=== PATIENT | female | born 1995 | race Caucasian/White ===

== ENCOUNTER 2019-09-10 00:19 | Emergency (ER) | payer OTHER ==
[2019-09-10] MEDS ORDERED: diPHENhydraMINE PO* 50 MG PO ONE (00:52)
--- NOTE | 2019-09-10 00:52 | ED ---
Allergic Reaction/Systemic - HPI Summary HPI Summary: Patient is a 24 y/o F presenting to [facility] with complaints of SOB, cough, wheezing and pruritus. She states that she had an encounter with her partner's cat tonight. She subsequently experienced onset of Sx. Patient went outside for cold air but reports no relief in Sx. She denies fever and production of phlegm with cough. Patient is on fluoxetine for anxiety. She denies Hx of asthma. PSHx of hip surgery x3, most recent was six weeks ago. She states that she had a glass of wine tonight. Patient denies tobacco and substance usage. Allergy to shrimp and percocet is noted. Home medications and allergies are reviewed. - History of Current Complaint Chief Complaint: EDAllergicReaction Time Seen by Provider: 09/10/19 00:41 Hx Obtained From: Patient Onset/Duration: Still Present Timing: Constant Severity Currently: None Pain Intensity: 0 Pain Scale Used: 0-10 Numeric Character: Pruritus Associated Signs And Symptoms: Positive: Other: - SOB, cough, wheezing - Allergies/Home Medications Allergies/Adverse Reactions: Allergies Allergy/AdvReac Type Severity Reaction Status Date / Time cats Allergy Hives Uncoded 09/10/19 00:26 percocet Allergy Hives Uncoded 09/10/19 00:21 shrimp Allergy Hives Uncoded 09/10/19 00:21 Home Medications: Home Medications Fluoxetine 20 mg PO DAILY 09/10/19 [History Confirmed 09/10/19] LORazepam 0.5 mg PO SEE INSTRUCTIONS 09/10/19 [History Confirmed 09/10/19] Mirena IUD 1 applic VAGINAL DAILY 09/10/19 [History Confirmed 09/10/19] PMH/Surg Hx/FS Hx/Imm Hx Respiratory History: Denies: Hx Asthma Sensory History: Denies: Hx Legally Blind, Hx Deafness Opthamlomology History: Denies: Hx Legally Blind EENT History: Denies: Hx Deafness Psychiatric History: Reports: Hx Anxiety - Surgical History Surgery Procedure, Year, and Place: hip surgery x3 Infectious Disease History: No Infectious Disease History: Denies: Traveled Outside the [place] in Last 30 Days - Family History Known Family History: Negative: Respiratory Disease - Social History Alcohol Use: Occasionally Substance Use Type: Reports: None Smoking Status (MU): Never Smoked Tobacco Review of Systems - ROS Summary Review of Systems Summary: Home Medications Medication Instructions Recorded Confirmed Type Fluoxetine 20 mg PO DAILY 09/10/19 09/10/19 History LORazepam 0.5 mg PO SEE INSTRUCTIONS 09/10/19 09/10/19 History Mirena IUD 1 applic VAGINAL DAILY 09/10/19 09/10/19 History Negative: Fever Respiratory: Other - wheezes Positive: Shortness Of Breath, Cough Skin: Other - pruritus All Other Systems Reviewed And Are Negative: Yes Physical Exam - Summary Physical Exam Summary: General: Well-developed, Well-nourished female. No acute distress. HEENT: Normocephalic, Atraumatic. Eyes: Conjuctiva normal, PERRL. Ears: TMs within normal limits. Nares: (-) discharge, (-) erythema. Oropharynx: Clear, mucous membranes moist, (-) exudates. Neck: Soft, FROM, (-) lymphadenopathy, (-) thyromegaly, (-) JVD. Cardiovascular: Normal sinus rhythm, (-) murmur. Lungs: Slightly prolonged expiration with good air exchange (-) wheezes, (-) rales, (-) rhonchi. Abdomen: Soft, non-tender, non-distended, (-) organomegaly, normal bowel sounds. Back: (-) CVA tenderness Extremities: No edema. Skin: Warm, dry, (-) rash. Neuro: Alert and oriented x3, no focal deficits. Psychiatric: Anxious appearing, otherwise normal Triage Information Reviewed: Yes Vital Signs On Initial Exam: Initial Vitals Temp Pulse Resp BP Pulse Ox 98.0 F 102 22 111/82 96 09/10/19 00:21 09/10/19 00:21 09/10/19 00:21 09/10/19 00:21 09/10/19 00:21 Vital Signs Reviewed: Yes Procedures - Sedation Patient Received Moderate/Deep Sedation with Procedure: No Diagnostics - Vital Signs Vital Signs Temp Pulse Resp BP Pulse Ox 09/10/19 00:21 98.0 F 102 22 111/82 96 - Laboratory Result Diagrams: 09/10/19 01:08 09/10/19 01:08 Lab Statement: Any lab studies that have been ordered have been reviewed, and results considered in the medical decision making process. - Radiology CXR Radiology Interpretation Completed By: ED Physician Summary of Radiographic Findings: No infiltrate, no pleural effusion, pending official report. Re-Evaluation - Re-Evaluation First Eval Re-Evaluation Time: 02:40 Change: Improved Comment: Patient's Sx are improved with meds. Patient was discharged to home. She was instructed to avoid potential allergens. Allergic Reaction Course/Dx - Course Course Of Treatment: 24 y/o F with acute onset of SOB and wheezing after exposure to cat. No Hx of allergies or asthma. Sx are improved with change in enviornment. She was also given duoneb and benadryl with improved Sx. Patient was discharged to home and advised to take Benadryl 50 mg every six hours as needed and to follow up with PCP. She was instructed to avoid potential allergens. - Diagnoses Provider Diagnoses: Allergic reaction Discharge ED - Sign-Out/Discharge Documenting (check all that apply): Patient Departure - discharge - Discharge Plan Condition: Stable Disposition: HOME Patient Education Materials: General Allergic Reaction (ED) Referrals: [facility] [Outside] - 3 Days Additional Instructions: PLEASE RETURN TO ED FOR ANY NEW OR WORSENING SYMPTOMS. PLEASE FOLLOW UP WITH YOUR PRIMARY CARE PHYSICIAN WITHIN THREE DAYS. TAKE BENADRYL 50 MG EVERY SIX HOURS NEEDED. - Billing Disposition and Condition Condition: STABLE Disposition: Home - Attestation Statements Document Initiated by Carynibe: Yes Documenting Scribe: KENDY RENDON Provider For Whom Foster is Documenting (Include Credential): PANCHO FROST MD Scribe Attestation: KENDY Bird, scribed for PANCHO FROST MD on 09/10/19 at 0400. Scribe Documentation Reviewed: Yes Provider Attestation: The documentation as recorded by the KENDY lopez accurately reflects the service I personally performed and the decisions made by me, PANCHO FROST MD Status of [employer] Document: Viewed
[2019-09-10] MEDS ORDERED: Albuterol/Ipratropium NEB.SOL* Albuterol 2.5 MG/Ipratropium 0.5 MG 3 ML INH ONE (00:54)
[2019-09-10 01:16] LABS: ABS Basophils 0.1 10^3/ul (0-0.2); ABS Eosinophils 0.6 10^3/ul (0-0.6); ABS Lymphocytes 1.8 10^3/ul (1.0-4.8); ABS Monocytes 0.6 10^3/ul (0-0.8); ABS Neutrophils 3.8 10^3/ul (1.5-7.7); Eosinophil % 8.4 %; Hematocrit 38 % (35-47); Lymphocyte % 26.3 %; Mean Corpuscular HGB Conc 34 g/dL (31-36); Mean Corpuscular Hemoglobin 32 pg (27-31); Mean Corpuscular Volume 93 fL (80-97); Mean Platelet Volume 7.6 fL (7.4-10.4); Platelet Count 283 10^3/uL (150-450); Red Blood Count 4.09 10^6 /uL (3.70-4.87); Red Cell Distribution Width 13 % (10-15); White Blood Count 6.9 10^3/uL (3.5-10.8)
[2019-09-10 01:31] LABS: INR 1.09 (0.82-1.09)
[2019-09-10 01:32] LABS: ALT 13 U/L (7-52); AST 13 U/L (13-39); Albumin 4.3 g/dL (3.2-5.2); Albumin/Globulin Ratio 1.8 (1-3); Alkaline Phosphatase 46 U/L (34-104); Anion Gap 8 mmol/L (2-11); BUN/Creatinine Ratio 19.1 (8-20); Blood Urea Nitrogen 13 mg/dL (6-24); CO2 Carbon Dioxide 24 mmol/L (22-32); Calcium 9.4 mg/dL (8.6-10.3); Chloride 106 mmol/L (101-111); EGFR African American 127.6 (>60); EGFR Non-African American 105.4 (>60); Globulin 2.4 g/dL (2-4); Glucose 98 mg/dL (70-100); Potassium 3.5 mmol/L (3.5-5.0); Sodium 138 mmol/L (135-145); Total Protein 6.7 g/dL (6.4-8.9)
[2019-09-10 01:39] LABS: HCG Pregnancy < 0.60 mIU/mL
[2019-09-10 02:56] VITALS: BP 120/78
== END 2019-09-10 02:55 | disposition home or self-care (01) ==
LOC: ED 00:19
DX: T78.40XA Allergy, unspecified, initial encounter (principal); X58.XXXA Exposure to other specified factors, initial encounter; F41.9 Anxiety disorder, unspecified; Z79.899 Other long term (current) drug therapy; Z88.5 Allergy status to narcotic agent
CPT/HCPCS: 36415; 71045; 80053; 83605; 83880; 84702; 85025; 85379; 85610; 99282; A9270-GY